=== PATIENT | female | born 1940 | race Caucasian/White ===

== ENCOUNTER 2017-07-27 15:39 | Emergency (ER) | payer MEDICARE, OTHER ==
[2015-11-13 07:31] VITALS: BMI 25.4
[~2017-07-27 15:39] MED LIST: EVISTA60 MG PO; GLUCOVANCE 5/501 TAB PO; HYDROCODONE-APA1 TAB PO; INVOKANA100 MG PO; OS-CAL 500+D TA1 TAB PO; OS-CAL500 MG PO; ZESTRIL40 MG PO
== END 2017-07-27 21:03 | disposition home or self-care (01) ==
LOC: D.ER 15:39
DX: I82.401 Acute embolism and thrombosis of unspecified deep veins of right lower extremity (principal); E11.9 Type 2 diabetes mellitus without complications; I10 Essential (primary) hypertension; M79.661 Pain in right lower leg

== ENCOUNTER → 2018-02-14 14:09 | Outpatient (CLI) | payer MEDICARE, OTHER ==
[2015-11-13 07:31] VITALS: BMI 25.4
[~2018-02-14 14:09] MED LIST changes: +ELIQUIS5 MG PO; +FLORAJEN3 CAPS460 MG PO; +MUCINEX DM ER1 EAC1 PO; +OMNICEF300 MG PO; +PREDNISONE10 MG PO; +SINGULAIR10 MG PO; +TESSALON PERLE100 MG PO
== END | disposition home or self-care (01) ==
LOC: D.CT 14:09
DX: R93.8 Abnormal findings on diagnostic imaging of other specified body structures (principal)

== ENCOUNTER 2018-02-17 09:21 | Inpatient (IN) | payer MEDICARE, OTHER ==
[~2018-02-17] VITALS: Ht 167.6 cm; Wt 66.4 kg
--- NOTE | ~2018-02-17 | EC ---
PATIENT:NEGRO JESSICA DATE OF SERVICE: 02/17/18 SEX: F MEDICAL RECORD: [id number] DATE OF : 40 LOCATION:D.M2 D.210 AGE OF PATIENT: 77 ADMISSION DATE: 02/17/18 REFERRING PHYSICIAN: INTERPRETING PHYSICIAN: MICAH VÁSQUEZ MD ECHOCARDIOGRAM REPORT ECHO CHARGES 4 ECHO COMPLETE Date: 02/17/18 CLINICAL DIAGNOSIS: SOB/PULMONARY HTN ? ECHOCARDIOGRAPHIC MEASUREMENTS (adult normal given) AC root (d.<3.7cm) 3.0 cm LV Septum d (<1.2 cm> 1.5 cm Valve Excursion 1.5 cm LV Septum (systole) 2.0 cm Left Atria (s.<4.0cm> 3.3 cm LVPW d(<1.2cm) 1.2 cm RV (d.<2.3cm) 2.4 cm LVPW (sytole) 1.9 cm LV diastole(<5.6CM) 3.9 cm MV E-F(>70mm/sec) cm LV systole 1.4 cm LVOT Diameter 1.8 cm MV exc.(>10mm) cm Est.ejection fraction (50-75%) % DOPPLER: LVIT cm/sec A 120 cm/sec E 94.0 cm/sec LA cm/sec RVSP 48.0 mmHg LVOT 149 cm/sec AOP1/2T m/s Asc. Ao 217 cm/sec RVOT 98.0 cm/sec RA cm/sec PA 112 cm/sec AV Gradient Peak 19.0 mmHg AV Mean 8.9 mmHg AV Area 1.4 cm MV Gradient Peak 8.3 mmHg MV Mean 2.6 mmHg MV Area cm COMMENTS: Admitting Representative: Cinthia TABOROE Forge Operator Helper: 1 Dr. Vásquez TAPE# PACS Pericardial Effusion N DATE OF SERVICE: 02/18/2018 FINDINGS: 1. Left ventricular chamber size is within normal limits. Left ventricular systolic function is normal. Overall ejection fraction estimated at 65%. 2. Left atrium, right atrium, and right ventricular chamber sizes are within normal limits. 3. Valvular structures have normal structure and motion. 4. Doppler interrogation reveals mild mitral regurgitation, mild tricuspid regurgitation. No other valvular insufficiency or stenosis. Pulmonary systolic ECHOCARDIOGRAM REPORT [id number] NEGRO JESSICA pressure is mildly elevated, estimated at 48 mmHg. 5. No evidence of pericardial effusion or left ventricular thrombus. TRANSINT:[id number] Voice Confirmation ID: [id number] DOCUMENT ID: [id number] MICAH VÁSQUEZ MD at 1950 CC: [id number] DICTATION DATE: 02/18/18 0952 RESIDENT IN DIAGNOSTIC RADIOLOGY: 02/18/18 1039 DIS IN 02/21/18 [place] [id number] [place] [id number]
[~2018-02-17 09:21] MED LIST changes: -ELIQUIS5 MG PO; -FLORAJEN3 CAPS460 MG PO; -MUCINEX DM ER1 EAC1 PO; -OMNICEF300 MG PO; -PREDNISONE10 MG PO; -SINGULAIR10 MG PO; -TESSALON PERLE100 MG PO
[2018-02-17 09:44] LABS: BASOPHILS 0.9 % (0-2); EOSINOPHILS 35.3 % (0-7); IMMATURE GRANULOCYTES 0.1 % (0-5); LYMPHOCYTES 11.6 % (15-50); MCH 30.2 pg (26.0-34.0); MCHC 33.3 g/dL (31.0-37.0); MCV 90.5 fL (80.0-100.0); MEAN PLATELET VOLUME 9.5 fL (7.4-10.4); MONOCYTES 5.1 % (2-11); PLATELET COUNT 220 10x3/uL (130-400); RBC 4.31 10x6/uL (4.00-5.40); RDW 12.8 % (11.5-14.5); WBC 9.6 10x3/uL (4.8-10.8)
[2018-02-17 09:58] LABS: ALBUMIN 3.3 g/dL (3.4-5.0); ALKALINE PHOSPHATASE 84 U/L (46-116); ALT (SGPT) 16 U/L (10-68); BILIRUBIN - TOTAL 1.13 mg/dL (0.2-1.3); CALC OSMOLALITY 284 mosm/kg (275-300); CALCIUM 8.9 mg/dL (8.5-10.1); CARBON DIOXIDE 27.3 mmol/L (21.0-32.0); CHLORIDE - SERUM 105 mmol/L (98-107); CREATININE - SERUM 0.8 mg/dL (0.6-1.3); POTASSIUM - SERUM 4.5 mmol/L (3.5-5.1); PROTEIN - SERUM 7.4 g/dL (6.4-8.2); SODIUM 139 mmol/L (136-145); UREA NITROGEN 24 mg/dL (7-18); eGFR NON AFRICAN AMERICAN 74 mL/min (90-120)
[2018-02-17 10:00] LABS: GLUCOSE 156 mg/dL (74-106)
[2018-02-17 10:07] LABS: PRO BNP 458 pg/mL (0-450); TROPONIN-I < 0.017 ng/mL (0.000-0.060)
[2018-02-17] MEDS ORDERED: ELIQUIS5 MG PO (12:19)
[2018-02-17 12:53] VITALS: BP 140/69
[2018-02-17 16:23] VITALS: BP 118/60
[2018-02-17 18:58] VITALS: BP 118/60; BMI 23.6
[2018-02-17 20:16] VITALS: BP 116/52
[2018-02-18 01:25] VITALS: BP 123/53
[2018-02-18 04:34] LABS: BASOPHILS 0 % (0-2); EOSINOPHILS 0.2 % (0-7); HEMATOCRIT 36.3 % (36.0-48.0); IMMATURE GRANULOCYTES 0.4 % (0-5); LYMPHOCYTES 6.8 % (15-50); MCH 30.2 pg (26.0-34.0); MCHC 33.1 g/dL (31.0-37.0); MCV 91.4 fL (80.0-100.0); MEAN PLATELET VOLUME 9.7 fL (7.4-10.4); MONOCYTES 1.7 % (2-11); NEUTROPHILS 90.9 % (40-80); PLATELET COUNT 218 10x3/uL (130-400); RBC 3.97 10x6/uL (4.00-5.40); RDW 12.7 % (11.5-14.5)
[2018-02-18 04:50] LABS: WBC 5.4 10x3/uL (4.8-10.8)
[2018-02-18 05:03] VITALS: BP 140/68
[2018-02-18 08:41] VITALS: BP 129/61
[2018-02-18 09:39] LABS: ANION GAP 17.3 mmol/L (8-16); CALCIUM 8.4 mg/dL (8.5-10.1); CARBON DIOXIDE 21.8 mmol/L (21.0-32.0); MAGNESIUM - SERUM 2.6 mg/dL (1.8-2.4); POTASSIUM - SERUM 5.1 mmol/L (3.5-5.1)
[2018-02-18 09:43] LABS: CREATININE - SERUM 1.1 mg/dL (0.6-1.3)
[2018-02-18 11:51] VITALS: Ht 167.6 cm; Wt 66.4 kg
[2018-02-18 12:39] VITALS: BP 134/61
[2018-02-18 13:54] LABS: APPEARANCE CLEAR (CLEAR); BILIRUBIN NEGATIVE (NEGATIVE); COLOR YELLOW (YELLOW); GLUCOSE 1000 mg/dL (NEGATIVE); KETONE MODERATE mg/dL (NEGATIVE); NITRITE NEGATIVE (NEGATIVE); PROTEIN NEGATIVE (NEGATIVE); SPECIFIC GRAVITY 1.015 (1.005-1.020); UROBILINOGEN NORMAL (NORMAL)
[2018-02-18 15:52] VITALS: BP 127/60
[2018-02-18 20:01] VITALS: BP 112/50
[2018-02-19 00:45] VITALS: BP 102/51
[2018-02-19 05:40] VITALS: BP 118/55
[2018-02-19 05:43] LABS: BASOPHILS 0.1 % (0-2); EOSINOPHILS 0 % (0-7); HEMATOCRIT 33.4 % (36.0-48.0); HEMOGLOBIN 11.1 g/dL (12-16); IMMATURE GRANULOCYTES 0.4 % (0-5); MCH 30.1 pg (26.0-34.0); MCHC 33.2 g/dL (31.0-37.0); MCV 90.5 fL (80.0-100.0); MEAN PLATELET VOLUME 9.7 fL (7.4-10.4); MONOCYTES 5.4 % (2-11); NEUTROPHILS 91.1 % (40-80); PLATELET COUNT 221 10x3/uL (130-400); RBC 3.69 10x6/uL (4.00-5.40); RDW 12.9 % (11.5-14.5); WBC 13.3 10x3/uL (4.8-10.8)
[2018-02-19 05:57] LABS: ANION GAP 8.4 mmol/L (8-16); CALCIUM 8.4 mg/dL (8.5-10.1); CREATININE - SERUM 0.9 mg/dL (0.6-1.3); POTASSIUM - SERUM 5.2 mmol/L (3.5-5.1)
[2018-02-19 06:00] LABS: CARBON DIOXIDE 28.8 mmol/L (21.0-32.0)
[2018-02-19 08:04] VITALS: BP 121/59
[2018-02-19 11:31] VITALS: BP 125/54
[2018-02-19 16:12] VITALS: BP 107/52
[2018-02-19 20:38] VITALS: BP 125/56
[2018-02-20] VITALS (7 sets, daily range): BP systolic 110–143; BP diastolic 51–75
[2018-02-20 05:04] LABS: BASOPHILS 0 % (0-2); EOSINOPHILS 0.1 % (0-7); HEMATOCRIT 33.7 % (36.0-48.0); HEMOGLOBIN 10.9 g/dL (12-16); IMMATURE GRANULOCYTES 0.3 % (0-5); LYMPHOCYTES 3.2 % (15-50); MCH 29.5 pg (26.0-34.0); MCHC 32.3 g/dL (31.0-37.0); MCV 91.3 fL (80.0-100.0); MEAN PLATELET VOLUME 9.7 fL (7.4-10.4); MONOCYTES 5.6 % (2-11); NEUTROPHILS 90.8 % (40-80); PLATELET COUNT 223 10x3/uL (130-400); RBC 3.69 10x6/uL (4.00-5.40); RDW 13.3 % (11.5-14.5); WBC 10.9 10x3/uL (4.8-10.8)
[2018-02-20 05:10] LABS: CALCIUM 8.4 mg/dL (8.5-10.1); CREATININE - SERUM 0.9 mg/dL (0.6-1.3)
[2018-02-21] VITALS: BP 133/67
[2018-02-21 04:00] VITALS: BP 130/76
[2018-02-21 05:45] LABS: BASOPHILS 0 % (0-2); EOSINOPHILS 6.9 % (0-7); HEMATOCRIT 34.1 % (36.0-48.0); IMMATURE GRANULOCYTES 0.2 % (0-5); LYMPHOCYTES 18.5 % (15-50); MCH 29.7 pg (26.0-34.0); MCHC 32.3 g/dL (31.0-37.0); MCV 92.2 fL (80.0-100.0); MONOCYTES 9.6 % (2-11); NEUTROPHILS 64.8 % (40-80); PLATELET COUNT 219 10x3/uL (130-400); RDW 13.3 % (11.5-14.5); WBC 8.8 10x3/uL (4.8-10.8)
[2018-02-21 05:56] LABS: CALC OSMOLALITY 285 mosm/kg (275-300); CALCIUM 8.3 mg/dL (8.5-10.1); CARBON DIOXIDE 29.5 mmol/L (21.0-32.0); CHLORIDE - SERUM 105 mmol/L (98-107); CREATININE - SERUM 0.7 mg/dL (0.6-1.3); POTASSIUM - SERUM 4.5 mmol/L (3.5-5.1); SODIUM 141 mmol/L (136-145); UREA NITROGEN 30 mg/dL (7-18); eGFR NON AFRICAN AMERICAN 86 mL/min (90-120)
[2018-02-21 05:57] LABS: GLUCOSE 80 mg/dL (74-106)
[2018-02-21 08:57] VITALS: BP 129/65
[2018-02-21] MEDS ORDERED: TESSALON PERLE100 MG PO (10:07)
[2018-02-21] MEDS ORDERED: SINGULAIR10 MG PO (10:07)
[2018-02-21] MEDS ORDERED: MUCINEX DM ER1 EAC1 PO (10:07)
[2018-02-21] MEDS ORDERED: FLORAJEN3 CAPS460 MG PO (10:08)
[2018-02-21] MEDS ORDERED: OMNICEF300 MG PO (10:08)
[2018-02-21] MEDS ORDERED: PREDNISONE10 MG PO (10:09)
[2018-02-21 10:11] LABS: ANA REFLEX - DIRECT Negative (Negative)
[2018-02-21 11:35] VITALS: BP 146/75
[2018-02-21 13:12] LABS: ANGIOTENSIN CONVERTING ENZYME < 15 U/L (14-82)
[2018-02-21 15:20] LABS: IMMUNOGLOBULIN A 180 mg/dL (64-422); IMMUNOGLOBULIN G 1133 mg/dL (700-1600)
[2018-02-21 17:11] LABS: ANCA - ANTIMYELOPEROXIDASE <9.0 U/mL (0.0-9.0); ANCA - ANTIPROTEINASE 3 <3.5 U/mL (0.0-3.5); ANCA - ATYPICAL <1:20 titer (Neg:<1:20); ANCA - CYTOPLASMIC <1:20 titer (Neg:<1:20); ANCA - PERINUCLEAR <1:20 titer (Neg:<1:20)
[2018-02-21 19:10] LABS: CYCLIC CITRULL PEPTIDE IGG/IGA 5 units (0-19)
[2018-02-23 03:13] LABS: IMMUNOGLOBULIN E 1634 IU/mL (0-100)
== END 2018-02-21 13:22 | disposition home or self-care (01) | DRG 197 ==
LOC: D.ER 09:21 → D.M2 11:10 → D.EDHOLD 11:10 → D.M2 11:23
PROVIDERS: Family Medicine; Internal Medicine Nephrology; Internal Medicine Pulmonary Disease
DX: J84.9 Interstitial pulmonary disease, unspecified (principal); J44.0 Chronic obstructive pulmonary disease with (acute) lower respiratory infection; I82.501 Chronic embolism and thrombosis of unspecified deep veins of right lower extremity; N17.9 Acute kidney failure, unspecified; J44.1 Chronic obstructive pulmonary disease with (acute) exacerbation; J20.9 Acute bronchitis, unspecified; I27.20 Pulmonary hypertension, unspecified; E11.42 Type 2 diabetes mellitus with diabetic polyneuropathy; I10 Essential (primary) hypertension; M19.90 Unspecified osteoarthritis, unspecified site; Z87.891 Personal history of nicotine dependence

== ENCOUNTER → 2018-07-04 08:32 | Outpatient (CLI) | payer MEDICARE, OTHER ==
[2018-02-18 11:51] VITALS: BMI 23.6
[~2018-07-04 08:32] MED LIST changes: +ELIQUIS5 MG PO; +FLORAJEN3 CAPS460 MG PO; +MUCINEX DM ER1 EAC1 PO; +OMNICEF300 MG PO; +PREDNISONE10 MG PO; +SINGULAIR10 MG PO; +TESSALON PERLE100 MG PO
== END | disposition home or self-care (01) ==
LOC: D.RT 08:32
DX: J84.9 Interstitial pulmonary disease, unspecified (principal); J44.9 Chronic obstructive pulmonary disease, unspecified

== ENCOUNTER 2019-02-17 09:38 | Inpatient (IN) | payer MEDICARE, OTHER ==
[~2019-02-17] VITALS: Ht 167.6 cm; Wt 68.9 kg
[2019-02-17 10:09] LABS: EOSINOPHILS 27.5 % (0-7); HEMATOCRIT 35.6 % (36.0-48.0); HEMOGLOBIN 12.3 g/dL (12-16); IMMATURE GRANULOCYTES 0.2 % (0-5); LYMPHOCYTES 10.9 % (15-50); MCH 29.4 pg (26.0-34.0); MCHC 34.6 g/dL (31.0-37.0); MCV 85.2 fL (80.0-100.0); MEAN PLATELET VOLUME 9.6 fL (7.4-10.4); MONOCYTES 6.6 % (2-11); NEUTROPHILS 53.8 % (40-80); PLATELET COUNT 224 10x3/uL (130-400); RBC 4.18 10x6/uL (4.00-5.40); RDW 13.1 % (11.5-14.5); WBC 9.1 10x3/uL (4.8-10.8)
[2019-02-17 10:19] LABS: APTT 25.4 SECONDS (22.8-39.4); INR 0.97 (0.85-1.17); PROTIME 12.4 SECONDS (11.6-15.0)
[2019-02-17 10:23] LABS: ALBUMIN 3.2 g/dL (3.4-5.0); ALKALINE PHOSPHATASE 104 U/L (46-116); ALT (SGPT) 16 U/L (10-68); BILIRUBIN - TOTAL 1.23 mg/dL (0.2-1.3); CALC OSMOLALITY 282 mosm/kg (275-300); CHLORIDE - SERUM 106 mmol/L (98-107); CREATININE - SERUM 0.6 mg/dL (0.6-1.3); POTASSIUM - SERUM 4.4 mmol/L (3.5-5.1); SODIUM 140 mmol/L (136-145); UREA NITROGEN 14 mg/dL (7-18); eGFR NON AFRICAN AMERICAN > 90 mL/min (90-120)
[2019-02-17 10:24] LABS: GLUCOSE 144 mg/dL (74-106)
[2019-02-17 10:33] LABS: MAGNESIUM - SERUM 1.6 mg/dL (1.8-2.4); PRO BNP 463 pg/mL (0-450); THYROID STIMULATING HORMONE 1.31 uIU/mL (0.36-3.74)
[2019-02-17 10:37] LABS: TROPONIN-I < 0.017 ng/mL (0.000-0.060)
[2019-02-17 11:01] VITALS: BP 149/84
[2019-02-17] MEDS ORDERED: COZAAR50 MG PO (12:20)
[2019-02-17] MEDS ORDERED: JANUVIA50 MG PO (12:23)
[2019-02-17 12:24] VITALS: BP 148/70; BMI 24.5
--- NOTE | 2019-02-17 13:17 | NUR ---
REC'D PT LYING IN BED RESP EVEN AND UNLABORED LUNG DIMINISHED THROUGHOUT WITH INSPIRATORY WHEEZING, CALLED RT FOR TREATMENT AT THIS TIME. PT AOX4. PT DENIES PAIN AT THIS TIME. 18 GUAGE IN LEFT HAND PATENT AND INTACT AT THIS TIME. BED AT LOWEST SETTING WITH BRAKES LOCKED SRX2 CALL LIGHT WITHIN REACH WILL CONTINUE TO MONITOR
[2019-02-17 14:48] VITALS: Ht 167.6 cm; Wt 68.9 kg
[2019-02-17 17:24] VITALS: BP 129/91
--- NOTE | 2019-02-17 17:30 | MORECARE ---
CASE MANAGEMENT DISCHARGE SUMMARY PATIENT: CLEO BYRNE UNIT: [id number] ADM DATE: 02/17/19 AGE: 78 : 40 SEX: F ROOM/BED: D.2225 AUTHOR: LEONARDO,DOC PHYSICIAN: REFERRING PHYSICIAN: ROSALIO CHAUDHARI MD DATE OF SERVICE: 02/17/19 Discharge Plan Patient Name: CLEO BYRNE Facility: [facility]:[place] : 1940 Planned Disposition: Home Anticipated Discharge Date: 02/20/19 Discharge Date: Expected LOS: 3 Initial Reviewer: [email or web address] Initial Review Date: 02/17/2019 Generated: 02/17/19 6:30 pm DCP- Discharge Planning Updated by [email or web address]: Dalila Rondon on 02/17/19 4:[address] Patient Name: CLEO BYRNE Admission Status: ER Accout number: [id number] Admission Date: 02-17-2019 : 1940 Admission Diagnosis: Attending: ROSALIO CHAUDHARI Current LOS: 1 Anticipated DC Date: 02-20-2019 Planned Disposition: Home Primary Insurance: MEDICARE A & B Discharge Planning Comments: DC PLAN: Return home with independently. ANTICIPATED DC NEEDS: Denied known dc needs in the ER. CM met with patient and her to complete initial dc planning assessment. CM educated patient on the CM role and verbal consent given by patient to complete assessment. CM verified patient's address, phone number, and emergency contact phone numbers. Patient lives at home with her and reports she is independent. At discharge patient plans to return home and feels this is a safe discharge. CM discussed availability of home health, rehab services, and medical equipment. Patient denied known discharge needs at this time. Patient reports her will transport her home at time of discharge. CM will continue to follow and will assist as needed with dc plans/needs. Stock Associate: Dalila Rondon RN, [facility] DCPIA - Discharge Planning Initial Assessment Updated by [email or web address]: Dalila Rondon on 02/17/19 5:25 pm * Is the patient Alert and Oriented? Yes * How many steps to enter\exit or inside your home? two * PCP Dr. Medrano's Nurse practitioner Star [facility] PHARMAC[facility] CLINICAL COORDINATOR * Pharm[facility] [address] * Preadmission Environment Home with Family * ADLs Independent * Equipment Nebulizer * List name and contact numbers for known caregivers / representatives who currently or will assist patient after discharge: Jhonny Byrne - spouse - [phone] * Verbal permission to speak to the caregivers and representatives has been obtained from the patient. Yes * Community resources currently utilized None * Additional services required to return to the preadmission environment? No * Can the patient safely return to the preadmission environment? Yes * Has this patient been hospitalized within the prior 30 days at any hospital? No Patient Name: CLEO BYRNE Page [phone] at 1730 All edits/amendments must be made on the electronic document DICTATION DATE: 02/17/191729 EDITOR: SINDHU 02/17/191729 RPT#: [id number] DC DATE: STATUS: ADM IN [facility] [address] [place] [address] END OF REPORT
--- NOTE | 2019-02-17 19:00 | NUR ---
REPORT RECEIVED AND CARE OF PT ASSUMED. PT LYING IN LOW GARCIA'S POSITION VISITING WITH FAMILY MEMBERS. IV TO LEFT FA PATENT WITH NS INFUSING AT 75...ABX INFUSING AT THIS TIME. O2 IN USE GLYNN NC AT 2L. WILL MONITOR FOR NEEDS.
[2019-02-17 20:00] VITALS: BP 142/62
--- NOTE | 2019-02-17 20:53 | NUR ---
HS MEDICATIONS GIVEN. FSBS 405 THIS CHECK REQUIRING COVERAGE WITH 20 UNITS OF INSULIN PER SLIDING SCALE.
[2019-02-18 04:00] VITALS: BP 133/65
[2019-02-18 05:32] LABS: BASOPHILS 0.1 % (0-2); EOSINOPHILS 0 % (0-7); HEMATOCRIT 30.5 % (36.0-48.0); HEMOGLOBIN 10.2 g/dL (12-16); IMMATURE GRANULOCYTES 0.3 % (0-5); LYMPHOCYTES 5.8 % (15-50); MCH 28.8 pg (26.0-34.0); MCHC 33.4 g/dL (31.0-37.0); MCV 86.2 fL (80.0-100.0); MEAN PLATELET VOLUME 9.7 fL (7.4-10.4); NEUTROPHILS 85.8 % (40-80); PLATELET COUNT 201 10x3/uL (130-400); RBC 3.54 10x6/uL (4.00-5.40); RDW 13.1 % (11.5-14.5); WBC 7.8 10x3/uL (4.8-10.8)
[2019-02-18 05:43] LABS: CALC OSMOLALITY 287 mosm/kg (275-300); CALCIUM 8.4 mg/dL (8.5-10.1); CARBON DIOXIDE 27.3 mmol/L (21.0-32.0); CHLORIDE - SERUM 108 mmol/L (98-107); CREATININE - SERUM 0.6 mg/dL (0.6-1.3); GLUCOSE 113 mg/dL (74-106); POTASSIUM - SERUM 4.7 mmol/L (3.5-5.1); SODIUM 142 mmol/L (136-145); eGFR NON AFRICAN AMERICAN > 90 mL/min (90-120)
[2019-02-18 05:51] LABS: UREA NITROGEN 23 mg/dL (7-18)
--- NOTE | 2019-02-18 06:01 | NUR ---
COLLECTED SAMPLE FOR RESPIRATORY CULTURE AND DELIVERED TO LAB.
--- NOTE | 2019-02-18 08:15 | NUR ---
REC'D PT LYING IN BED AOX4 RESP EVEN AND UNLABORED LUNGS SOUNDS DIMINISHED THROUGHOUT. IV TO LEFT FOREARM PATENT AND INTACT AT THIS TIME. PT DENIES NEEDS AT THIS TIME. SRX2 BED AT LOWEST SETTING WITH BRAKES LOCKED CALL LIGHT WITHIN REACH WILL CONTINUE TO MONITOR
[2019-02-18 08:35] VITALS: BP 128/60
[2019-02-18 12:31] VITALS: BP 126/61
[2019-02-18 16:58] VITALS: BP 140/63
[2019-02-18 17:42] VITALS: BP 140/63
--- NOTE | 2019-02-18 19:00 | NUR ---
REPORT RECEIVED AND CARE OF PT ASSUMED. PT LYING IN SEMI GARCIA'S POSITION TALKING ON THE PHONE. IV TO LEFT FA PATENT WITH NS INFUSING AT 75 ML/HR. O2 IN USE VIA NC AT 2L. WILL MONITOR FOR NEEDS.
[2019-02-18 20:00] VITALS: BP 129/65
--- NOTE | 2019-02-18 20:14 | NUR ---
HS MEDICATIONS GIVEN TO INCLUDE PHENERGAN W/ CODEINE COUGH SYRUP PER PRN ORDER. WILL CONTINUE TO MONITOR FOR NEEDS.
[2019-02-19] VITALS: BP 118/64
[2019-02-19 04:00] VITALS: BP 142/72
[2019-02-19 04:51] LABS: BASOPHILS 0 % (0-2); EOSINOPHILS 0 % (0-7); HEMATOCRIT 29.1 % (36.0-48.0); HEMOGLOBIN 9.4 g/dL (12-16); IMMATURE GRANULOCYTES 0.4 % (0-5); LYMPHOCYTES 5.1 % (15-50); MCH 28.1 pg (26.0-34.0); MCHC 32.3 g/dL (31.0-37.0); MCV 87.1 fL (80.0-100.0); MEAN PLATELET VOLUME 9.5 fL (7.4-10.4); MONOCYTES 5.4 % (2-11); NEUTROPHILS 89.1 % (40-80); PLATELET COUNT 191 10x3/uL (130-400); RBC 3.34 10x6/uL (4.00-5.40); RDW 13.5 % (11.5-14.5); WBC 8.5 10x3/uL (4.8-10.8)
[2019-02-19 05:12] LABS: CALC OSMOLALITY 283 mosm/kg (275-300); CALCIUM 8.1 mg/dL (8.5-10.1); CHLORIDE - SERUM 109 mmol/L (98-107); CREATININE - SERUM 0.7 mg/dL (0.6-1.3); GLUCOSE 90 mg/dL (74-106); MAGNESIUM - SERUM 1.7 mg/dL (1.8-2.4); POTASSIUM - SERUM 4.8 mmol/L (3.5-5.1); SODIUM 140 mmol/L (136-145); UREA NITROGEN 26 mg/dL (7-18); eGFR NON AFRICAN AMERICAN 86 mL/min (90-120)
--- NOTE | 2019-02-19 08:00 | NUR ---
ASSESSMENT PER FLOW SHEET. PT IS WITHOUT DISTRESS.FALL PREVENTION IN PLACE.MONITOR FOR NEEDS.
[2019-02-19 08:05] VITALS: BP 149/79
[2019-02-19 12:42] VITALS: BP 163/53
--- NOTE | 2019-02-19 15:07 | NUR ---
OT NOTE: PT COMPLETED BED MOB TASKS WITH SPV.PT COMPLETED EOB SITTING WITH SPV. PT COMPLETED BUE AROM AXS. LASHANDA BERMAN COTA
[2019-02-19 17:16] VITALS: BP 162/76
[2019-02-19 20:00] VITALS: BP 159/79
--- NOTE | 2019-02-19 20:00 | NUR ---
ASSESSMENT PER FLOWSHEET. PATIENT IN BED TAKING UPDRAFT TX. IV PATENT LEFT ARM OF NS AT 75CC'S/HR.O2 ON 2L/M IA NC. SR UP X2 CALL LIGHT WITHIN REACH.
--- NOTE | 2019-02-19 22:00 | NUR ---
MEDS PER AUG. CVUAF=230.12 UNITS OF REGULAR INSULIN GIVEN SUBC TO RT ARM PER S/S.
[2019-02-20 00:59] VITALS: BP 136/73
--- NOTE | 2019-02-20 02:40 | NUR ---
AWAKE UP TO BR. RESTING QUIETLY.
[2019-02-20 05:08] VITALS: BP 170/85
[2019-02-20 06:05] LABS: BASOPHILS 0.1 % (0-2); EOSINOPHILS 0.1 % (0-7); IMMATURE GRANULOCYTES 0.4 % (0-5); LYMPHOCYTES 6.3 % (15-50); MCH 28.2 pg (26.0-34.0); MCHC 32.3 g/dL (31.0-37.0); MCV 87.3 fL (80.0-100.0); MEAN PLATELET VOLUME 10.1 fL (7.4-10.4); MONOCYTES 4.8 % (2-11); NEUTROPHILS 88.3 % (40-80); PLATELET COUNT 211 10x3/uL (130-400); RBC 3.55 10x6/uL (4.00-5.40); RDW 13.4 % (11.5-14.5)
[2019-02-20 06:28] LABS: CALC OSMOLALITY 287 mosm/kg (275-300); CALCIUM 8.2 mg/dL (8.5-10.1); CARBON DIOXIDE 27.8 mmol/L (21.0-32.0); CHLORIDE - SERUM 109 mmol/L (98-107); CREATININE - SERUM 0.7 mg/dL (0.6-1.3); GLUCOSE 72 mg/dL (74-106); MAGNESIUM - SERUM 2.1 mg/dL (1.8-2.4); POTASSIUM - SERUM 4.4 mmol/L (3.5-5.1); SODIUM 143 mmol/L (136-145); UREA NITROGEN 23 mg/dL (7-18); eGFR NON AFRICAN AMERICAN 86 mL/min (90-120)
--- NOTE | 2019-02-20 08:00 | NUR ---
ASSESSMENT PER FLOW SHEET. PT IS WITHOUT DISTRESS.MONITOR FOR NEEDS.CALL LIGHT IN REACH
[2019-02-20 08:56] VITALS: BP 159/84
[2019-02-20 12:55] VITALS: BP 171/74
--- NOTE | 2019-02-20 12:56 | NUR ---
OT NOTE: PT PERFORMED VERY WELL TODAY. ABLE TO SPARKLE AND DOFF SOCKS AND GOWN WITHOUT ASSIST; BED MOB INDEP; TOILETING WITH SPV; AMB TO SHOWER AND PERFORM FULL SHOWER WITHOUT ASSIST AND WITHOUT USE OF TUB BENCH.. DID HOWEVER USE HAND RAILS. GOOD SAFETY WHEN STEPPING OUT OF SHOWER; AMB IN ROOM TO SINK TO PERFORM GROOMING TASKS WITH SBA. BACK TO BED WITH SBA. DANISH JAY, OTR/L
[2019-02-20 16:45] VITALS: BP 156/77
--- NOTE | 2019-02-20 16:48 | NUR ---
OT NOTE: PT COMPLETED BATHING AND GROOMING TASKS WITH SBA. PT COMPLETED ADL MOB WITH SBA. THANK YOU, RYANN POPE
--- NOTE | 2019-02-20 17:46 | NUR ---
PT REMAINS WITHOUT DISTRESS.CONT PLAN OF CARE
[2019-02-20 20:00] VITALS: BP 171/76
--- NOTE | 2019-02-20 20:00 | NUR ---
ASSESSMENT PER FLOWSHEET. IV PATENT LEFT ARM OF NS AT 30CC'S/HR. O2 ON 2 L/M PER NC NO DISTRESS. SR UP X2 CALL LIGHT WITHIN REACH RT HERE FOR UPDRAFT TX.
--- NOTE | 2019-02-20 22:10 | NUR ---
MEDS GIVEN PER AUG. CLJZ=717. REGULAR INSULIN 10 UNITS GIVEN SUBC PER S/S RT ARM.
--- NOTE | 2019-02-21 | NUR ---
UP TO BR VOIDS WELL BACK TO BED. RESTING QUIETLY.
--- NOTE | 2019-02-21 03:00 | NUR ---
EYES CLOSED RESPIRATIONS WITH EASE AND UNLABORED.
[2019-02-21 04:35] VITALS: BP 148/64
--- NOTE | 2019-02-21 05:13 | NUR ---
RESTING QUIETLY RESPIRATIONS WITH EASE AND UNLABORED.
[2019-02-21 06:01] LABS: BASOPHILS 0.2 % (0-2); EOSINOPHILS 3.2 % (0-7); HEMATOCRIT 30.1 % (36.0-48.0); HEMOGLOBIN 9.9 g/dL (12-16); IMMATURE GRANULOCYTES 0.3 % (0-5); LYMPHOCYTES 17.5 % (15-50); MCH 28.8 pg (26.0-34.0); MCHC 32.9 g/dL (31.0-37.0); MCV 87.5 fL (80.0-100.0); MONOCYTES 13.9 % (2-11); NEUTROPHILS 64.9 % (40-80); PLATELET COUNT 211 10x3/uL (130-400); RBC 3.44 10x6/uL (4.00-5.40); RDW 13.5 % (11.5-14.5)
[2019-02-21 06:15] LABS: CALCIUM 8.1 mg/dL (8.5-10.1); CARBON DIOXIDE 29.4 mmol/L (21.0-32.0); CHLORIDE - SERUM 110 mmol/L (98-107); CREATININE - SERUM 0.6 mg/dL (0.6-1.3); MAGNESIUM - SERUM 2.1 mg/dL (1.8-2.4); SODIUM 144 mmol/L (136-145); UREA NITROGEN 22 mg/dL (7-18); WBC 10.4 10x3/uL (4.8-10.8); eGFR NON AFRICAN AMERICAN > 90 mL/min (90-120)
[2019-02-21 06:36] LABS: CALC OSMOLALITY 286 mosm/kg (275-300); POTASSIUM - SERUM 3.4 mmol/L (3.5-5.1)
[2019-02-21 06:37] LABS: GLUCOSE 50 mg/dL (74-106)
--- NOTE | 2019-02-21 07:32 | NUR ---
ALERT AND ORIENTED. LUNGS DIMINISHED BILATERALLY IN ALL SANDOVAL. HEART SOUNDS S1 AND S2 HEARD IN ALL SANDOVAL. BOWEL SOUNDS ACTIVE X 4. SKIN INTACT WITHOUT REDNESS. IV TO LEFT ARM PATENT WITHOUT REDNESS. DENIES PAIN. DENIES NEEDS. BED LOW. CALL MICHAELS AND PERSONAL ITEMS IN REACH. WILL CONTINUE TO MONITOR.
[2019-02-21 07:59] VITALS: BP 146/74
[2019-02-21] MEDS ORDERED: BROVANA15 MCG/2 M INH (10:41)
[2019-02-21] MEDS ORDERED: OMNICEF300 MG PO (10:41)
[2019-02-21] MEDS ORDERED: ZITHROMAX250 MG PO (10:41)
[2019-02-21] MEDS ORDERED: MUCINEX DM ER1 EAC1 PO (10:42)
[2019-02-21] MEDS ORDERED: FLUTICASONE PRO16 GM NASAL (10:43)
[2019-02-21] MEDS ORDERED: FLORAJEN3 CAPS460 MG PO (10:43)
[2019-02-21] MEDS ORDERED: SINGULAIR10 MG PO (10:43)
[2019-02-21] MEDS ORDERED: Tessalon Perle PO (10:44)
[2019-02-21] MEDS ORDERED: PREDNISONE10 MG PO (10:44)
[2019-02-21] MEDS ORDERED: IPRAT-ALBUT 0.5-3 ML INH (10:45)
--- NOTE | 2019-02-21 11:00 | NUR ---
SPOKE WITH CRISS SHULTZ ABOUT PATIENT GETTING DIFLUCAN FOR YEAST INFECTION. STATES WILL PUT IN ORDER BEFORE DISCHARGE.
[2019-02-21] MEDS ORDERED: DIFLUCAN150 MG PO (11:03)
[2019-02-21] MEDS ORDERED: ADVAIR 250/501 DISK INH (11:30)
--- NOTE | 2019-02-21 11:34 | MORECARE ---
CASE MANAGEMENT DISCHARGE SUMMARY PATIENT: CLEO BYRNE UNIT: [id number] ADM DATE: 02/17/19 AGE: 78 : 40 SEX: F ROOM/BED: D.2225 AUTHOR: LEONARDODOC PHYSICIAN: REFERRING PHYSICIAN: ROSALIO CHAUDHARI MD DATE OF SERVICE: 02/21/19 Discharge Plan Patient Name: CLEO BYRNE Facility: [facility]:[place] : 1940 Planned Disposition: Home Anticipated Discharge Date: 02/20/19 Discharge Date: Expected LOS: 3 Initial Reviewer: [email or web address] Initial Review Date: 02/17/2019 Generated: 02/21/19 12:33 pm Comments DCP- Discharge Planning Updated by [email or web address]: Danae Caballero on 02/21/19 10:[address] Patient Name: CLEO BYRNE Encounter No: [id number] : 1940 Primary Insurance: MEDICARE A & B Anticipated DC Date: 02-20-2019 Planned Disposition: Home External Planned Provider: : DCP follow-up note: Patient and family in agreement with discharge plan. No changes to plan. I spoke with RT, she states patient's oxygen saturation is 98% on room air and does not qualify for home oxygen. She has a nebulizer and neb meds at her home. States she gets them from [employer]. States she did not qualify through [employer] to have medicare pay for her nebulizer and neb meds. I offered to see if she would qualify now and she states "no, I will just get it from [employer]." States her will pick her up from discharge. Home today, denies needs. Danae Caballero DCP- Discharge Planning Updated by [email or web address]: Dalila Rondon on 02/17/19 4:[address] Patient Name: CLEO BYRNE Admission Status: ER Accout number: [id number] Admission Date: 02-17-2019 : 1940 Admission Diagnosis: Attending: ROSALIO CHAUDHARI Current LOS: 1 Anticipated DC Date: 02-20-2019 Planned Disposition: Home Primary Insurance: MEDICARE A & B Discharge Planning Comments: DC PLAN: Return home with independently. ANTICIPATED DC NEEDS: Denied known dc needs in the ER. CM met with patient and her to complete initial dc planning assessment. CM educated patient on the CM role and verbal consent given by patient to complete assessment. CM verified patient's address, phone number, and emergency contact phone numbers. Patient lives at home with her and reports she is independent. At discharge patient plans to return home and feels this is a safe discharge. CM discussed availability of home health, rehab services, and medical equipment. Patient denied known discharge needs at this time. Patient reports her will transport her home at time of discharge. CM will continue to follow and will assist as needed with dc plans/needs. Science Education Professor: Dalila Rondon RN, [facility] DCPIA - Discharge Planning Initial Assessment Updated by [email or web address]: Dalila Rondon on 02/17/19 5:25 pm * Is the patient Alert and Oriented? Yes * How many steps to enter\\exit or inside your home? two * PCP Dr. Medrano's Nurse practitioner Star Blanca PIANO REFINISHER * Pharmacy [facility] [address] * Preadmission Environment Home with Family * ADLs Independent * Equipment Nebulizer * List name and contact numbers for known caregivers / representatives who currently or will assist patient after discharge: Jhonny Byrne - spouse - [phone] * Verbal permission to speak to the caregivers and representatives has been obtained from the patient. Yes * Community resources currently utilized None * Additional services required to return to the preadmission environment? No * Can the patient safely return to the preadmission environment? Yes * Has this patient been hospitalized within the prior 30 days at any hospital? No Coverage Notice Reviewer: [email or web address] Pat Caballero Notice Issued Date-Time: 02/21/2019 11:26 Notice Type: IM Discharge Notice Notice Delivered To: Patient Relationship to Patient: Self Unix Manager Name: Delivery Method: HAND - Hand Delivered [place] Days: Prior Verbal Notification: Recipient Understood Notice: Yes Recipient Signature: Yes Med Rec Note Co-signed by Attending: Coverage Notice Comment: IMM explained, signed, given, copy placed in MR Last DP export: 02/17/19 4:30 p Patient Name: CLEO BYRNE Page [phone] at 1134 All edits/amendments must be made on the electronic document DICTATION DATE: 02/21/19 1133 STORAGE BATTERY TESTER: SINDHU 02/21/19 1133 RPT#: [id number] DC DATE: STATUS: ADM IN [facility] [address] [place] [address] END OF REPORT
[2019-02-21 11:55] VITALS: BP 162/77
--- NOTE | 2019-02-21 11:57 | NUR ---
SPOKE WITH DR ALARCON WHO STATES NOT DISCHARGING PATIENT TODAY. WANTS TO GET UA/CS. SUPPLIES IN ROOM. PATIENT VERBALIZED UNDERSTANDING.
--- NOTE | 2019-02-21 12:07 | NUR ---
EDUCATION PROVIDED ON NEED FOR UA/CS. EDUCATION PROVIDED TO CLEAN AREA EXTREMELY WELL AND GET URINE IN CUP MIDSTREAM. PATIENT VERBALIZED UNDERSTANDING AND PROVIDED TEACH BACK.
--- NOTE | 2019-02-21 14:18 | NUR ---
RESTING IN BED. DENIES PAIN. DENIES NEEDS. WILL CONTINUE TO MONITOR.
[2019-02-21 15:21] LABS: APPEARANCE CLEAR (CLEAR); BACTERIA FEW /hpf (NONE SEEN); BILIRUBIN NEGATIVE (NEGATIVE); COLOR STRAW (YELLOW); EPITHELIAL CELLS 0-5 /hpf (0-5); GLUCOSE 1000 mg/dL (NEGATIVE); KETONE SMALL mg/dL (NEGATIVE); MUCUS <1+ /lpf (NONE SEEN); NITRITE NEGATIVE (NEGATIVE); PROTEIN NEGATIVE (NEGATIVE); RED CELLS - URINE OCC /hpf (0-5); SPECIFIC GRAVITY 1.015 (1.005-1.020); UROBILINOGEN NORMAL (NORMAL); WHITE CELLS - URINE OCC /hpf (0-5)
--- NOTE | 2019-02-21 15:56 | NUR ---
OT NOTE: PT SLEEPING IN PM. REPORTED THAT SHE WAS GOING TO HAVE TO STAY ANOTHER NIGHT DUE TO POSSIBLE UTI. PT STATED THAT SHE HAD BEEN UP SEVERAL TIMES TO THE BATHROOM BUT DID NOT FEEL LIKE AMB INTO HALLWAY AT THIS TIME. DANISH JAY, OTR/L
[2019-02-21 16:01] VITALS: BP 157/71
--- NOTE | 2019-02-21 17:15 | NUR ---
SITTING IN CHAIR AT BEDSIDE. DENIES PAIN. DENIES NEEDS. WILL CONTINUE TO MONITOR.
--- NOTE | 2019-02-21 20:00 | NUR ---
ASSESSMENT PER FLOWSHEET. IV PATENT LEFT ARM SALINE LOCKED. O2 OFF PT ON ROOM AIR. DENIES NEEDS. SR UP X2 CALL LIGHT WITHIN REACH.
[2019-02-21 20:47] VITALS: BP 144/69
--- NOTE | 2019-02-21 21:30 | NUR ---
MEDS GIVEN PER MAR. [id number]. REGULAR INSULIN 8 UNITS GIVEN PER S/S SUBC.
--- NOTE | 2019-02-22 | NUR ---
EYES CLOSED RESPIRATIONS WITH EASE AND UNLABORED.
[2019-02-22 00:36] VITALS: BP 161/79
[2019-02-22 05:08] VITALS: BP 171/78
--- NOTE | 2019-02-22 06:27 | NUR ---
MEDS GIVEN PER MAR. MNCV=[id number] NO COVERAGE NEEDED.
[2019-02-22 06:44] LABS: BASOPHILS 0 % (0-2); EOSINOPHILS 0 % (0-7); HEMATOCRIT 30.5 % (36.0-48.0); HEMOGLOBIN 10.1 g/dL (12-16); IMMATURE GRANULOCYTES 0.5 % (0-5); LYMPHOCYTES 8.6 % (15-50); MCH 28.3 pg (26.0-34.0); MCHC 33.1 g/dL (31.0-37.0); MONOCYTES 6.6 % (2-11); NEUTROPHILS 84.3 % (40-80); PLATELET COUNT 211 10x3/uL (130-400); RBC 3.57 10x6/uL (4.00-5.40); RDW 13.2 % (11.5-14.5)
[2019-02-22 06:53] LABS: WBC 6.5 10x3/uL (4.8-10.8)
[2019-02-22 06:55] LABS: MCV 85.4 fL (80.0-100.0)
[2019-02-22 06:57] LABS: CALCIUM 8.1 mg/dL (8.5-10.1); CARBON DIOXIDE 28.9 mmol/L (21.0-32.0); CHLORIDE - SERUM 107 mmol/L (98-107); CREATININE - SERUM 0.6 mg/dL (0.6-1.3); SODIUM 141 mmol/L (136-145); UREA NITROGEN 22 mg/dL (7-18); eGFR NON AFRICAN AMERICAN > 90 mL/min (90-120)
[2019-02-22 07:00] LABS: CALC OSMOLALITY 284 mosm/kg (275-300); GLUCOSE 112 mg/dL (74-106); POTASSIUM - SERUM 4.3 mmol/L (3.5-5.1)
--- NOTE | 2019-02-22 07:41 | NUR ---
PATIENT BEDSIDE REPORT RECIEVED. PATIENT UP TO BR AT THIS TIME. NO COMPLAINTS OR PROBLEMS. CALL LIGHT WITHIN REACH.
[2019-02-22 08:50] VITALS: BP 182/77
--- NOTE | 2019-02-22 12:00 | NUR ---
PATIENT RECIEVED DC INSTRUCTIONS. VERBALIZED UNDERSTANDING. PRESCRIPTIONS ALREADY PICKED UP BY . NO QUESTIONS AT THIS TIME. IV REMOVED WITH CATH TIP INTACT. CALL LIGHT WITHIN REACH. WAITING TO EAT LUNCH AND THEN DC.
[2019-02-22 12:14] VITALS: BP 113/61
--- NOTE | 2019-02-22 12:40 | NUR ---
PATIENT ESCORTED OUT OF HOSPITAL VIA WC WITH PERSONAL BELONGING TO PRIVATE VEHICLE.
--- NOTE | 2019-02-22 14:10 | MORECARE ---
CASE MANAGEMENT DISCHARGE SUMMARY PATIENT: CLEO BYRNE UNIT: [id number] ADM DATE: 02/17/19 AGE: 78 : 40 SEX: F ROOM/BED: D.2225 AUTHOR: LEONARDO,DOC PHYSICIAN: REFERRING PHYSICIAN: ROSALIO CHAUDHARI MD DATE OF SERVICE: 02/22/19 Discharge Plan Patient Name: CLEO BYRNE Facility: [facility]:[place] : 1940 Planned Disposition: Home Anticipated Discharge Date: 02/20/19 Discharge Date: 02/22/2019 Expected LOS: 3 Initial Reviewer: [email or web address] Initial Review Date: 02/17/2019 Generated: 02/22/19 3:09 pm Comments DCP- Discharge Planning Updated by [email or web address]: Danaecheryl Caballero on 02/22/19 1:[address] Discharging home today. She declines needs. DCP- Discharge Planning Updated by [id number]: aDnae Caballero on 02/21/19 10:[address] Patient Name: CLEO BYRNE Encounter No: [id number] : 1940 Primary Insurance: MEDICARE A & B Anticipated DC Date: 02-20-2019 Planned Disposition: Home External Planned Provider: : DCP follow-up note: Patient and family in agreement with discharge plan. No changes to plan. I spoke with RT, she states patient's oxygen saturation is 98% on room air and does not qualify for home oxygen. She has a nebulizer and neb meds at her home. States she gets them from [employer]. States she did not qualify through [employer] to have medicare pay for her nebulizer and neb meds. I offered to see if she would qualify now and she states "no, I will just get it from [employer]." States her will pick her up from discharge. Home today, denies needs. Danae Caballero DCP- Discharge Planning Updated by [email or web address]: Dalila Rondon on 02/17/19 4:[address] Patient Name: CLEO BYRNE Admission Status: ER Accout number: [id number] Admission Date: 02-17-2019 : 1940 Admission Diagnosis: Attending: ROSALIO CHAUDHARI Current LOS: 1 Anticipated DC Date: 02-20-2019 Planned Disposition: Home Primary Insurance: MEDICARE A & B Discharge Planning Comments: DC PLAN: Return home with independently. ANTICIPATED DC NEEDS: Denied known dc needs in the ER. CM met with patient and her to complete initial dc planning assessment. CM educated patient on the CM role and verbal consent given by patient to complete assessment. CM verified patient's address, phone number, and emergency contact phone numbers. Patient lives at home with her and reports she is independent. At discharge patient plans to return home and feels this is a safe discharge. CM discussed availability of home health, rehab services, and medical equipment. Patient denied known discharge needs at this time. Patient reports her will transport her home at time of discharge. CM will continue to follow and will assist as needed with dc plans/needs. Gang Head Saw Operator: Dalila Rondon RN, [facility] DCPIA - Discharge Planning Initial Assessment Updated by [email or web address]: Dalila Rondon on 02/17/19 5:25 pm * Is the patient Alert and Oriented? Yes * How many steps to enter\\exit or inside your home? two * PCP Dr. Medrano's Nurse practitioner Star Blanca COLD STORAGE WORKER * Pharmacy [facility] [address] * Preadmission Environment Home with Family * ADLs Independent * Equipment Nebulizer * List name and contact numbers for known caregivers / representatives who currently or will assist patient after discharge: Jhonny Byrne - spouse - [phone] * Verbal permission to speak to the caregivers and representatives has been obtained from the patient. Yes * Community resources currently utilized None * Additional services required to return to the preadmission environment? No * Can the patient safely return to the preadmission environment? Yes * Has this patient been hospitalized within the prior 30 days at any hospital? No Coverage Notice Reviewer: [id number] Pta Caballero Notice Issued Date-Time: 02/21/2019 11:26 Notice Type: IM Discharge Notice Notice Delivered To: Patient Relationship to Patient: Self Crew Mess Attendant Name: Delivery Method: HAND - Hand Delivered Shawanda Days: Prior Verbal Notification: Recipient Understood Notice: Yes Recipient Signature: Yes Med Rec Note Co-signed by Attending: Coverage Notice Comment: IMM explained, signed, given, copy placed in MR Last DP export: 02/21/19 10:33 am Patient Name: CLEO BYRNE Page [phone] at 1410 All edits/amendments must be made on the electronic document DICTATION DATE: 02/22/191408 DIRECTOR TRUST: SINDHU 02/22/191408 RPT#: [id number] DC DATE:02/22/19 STATUS: DIS IN [facility] [address] [place] [address] END OF REPORT
--- NOTE | 2019-02-26 12:39 | MORECARE ---
CASE MANAGEMENT DISCHARGE SUMMARY PATIENT: CLEO BYRNE UNIT: [id number] ADM DATE: 02/17/19 AGE: 78 : 40 SEX: F ROOM/BED: D.2225 AUTHOR: LEOANRDODOC PHYSICIAN: REFERRING PHYSICIAN: ROSALIO CHAUDHARI MD DATE OF SERVICE: 02/26/19 Discharge Plan Patient Name: CLEO BYRNE Facility: [facility]:[place] : 1940 Planned Disposition: Home Anticipated Discharge Date: 02/20/19 Discharge Date: 02/22/2019 Expected LOS: 3 Initial Reviewer: [email or web address] Initial Review Date: 02/17/2019 Generated: 02/26/19 1:39 pm Comments DCP- Discharge Planning Updated by [email or web address]: Danae Caballero on 02/22/19 1:[address] Discharging home today. She declines needs. DCP- Discharge Planning Updated by [email or web address]: Danae Caballero on 02/21/19 10:[address] Patient Name: CLEO BYRNE Encounter No: [id number] : 1940 Primary Insurance: MEDICARE A & B Anticipated DC Date: 02-20-2019 Planned Disposition: Home External Planned Provider: : DCP follow-up note: Patient and family in agreement with discharge plan. No changes to plan. I spoke with RT, she states patient's oxygen saturation is 98% on room air and does not qualify for home oxygen. She has a nebulizer and neb meds at her home. States she gets them from [employer] (acquired by [employer] in 2014). States she did not qualify through [employer] to have medicare pay for her nebulizer and neb meds. I offered to see if she would qualify now and she states "no, I will just get it from [facility]." States her will pick her up from discharge. Home today, denies needs. Danae Caballero DCP- Discharge Planning Updated by [email or web address]: Dalila Rondon on 02/17/19 4:[address] Patient Name: CLEO BYRNE Admission Status: ER Accout number: [id number] Admission Date: 02-17-2019 : 1940 Admission Diagnosis: Attending: ROSALIO CHAUDHARI Current LOS: 1 Anticipated DC Date: 02-20-2019 Planned Disposition: Home Primary Insurance: MEDICARE A & B Discharge Planning Comments: DC PLAN: Return home with independently. ANTICIPATED DC NEEDS: Denied known dc needs in the ER. CM met with patient and her to complete initial dc planning assessment. CM educated patient on the CM role and verbal consent given by patient to complete assessment. CM verified patient's address, phone number, and emergency contact phone numbers. Patient lives at home with her and reports she is independent. At discharge patient plans to return home and feels this is a safe discharge. CM discussed availability of home health, rehab services, and medical equipment. Patient denied known discharge needs at this time. Patient reports her will transport her home at time of discharge. CM will continue to follow and will assist as needed with dc plans/needs. Enrobing Machine Corder: Dalila Rondon RN, [facility] DCPIA - Discharge Planning Initial Assessment Updated by [email or web address]: Dalila Rondon on 02/17/19 5:25 pm * Is the patient Alert and Oriented? Yes * How many steps to enter\\exit or inside your home? two * PCP Dr. Medrano's Nurse practitioner Star Blanca [employer] * Pharmacy [facility] [address] * Preadmission Environment Home with Family * ADLs Independent * Equipment Nebulizer * List name and contact numbers for known caregivers / representatives who currently or will assist patient after discharge: Jhonny yBrne - spouse - [phone] * Verbal permission to speak to the caregivers and representatives has been obtained from the patient. Yes * Community resources currently utilized None * Additional services required to return to the preadmission environment? No * Can the patient safely return to the preadmission environment? Yes * Has this patient been hospitalized within the prior 30 days at any hospital? No Coverage Notice Reviewer: [email or web address] Pat Caballero Notice Issued Date-Time: 02/21/2019 11:26 Notice Type: IM Discharge Notice Notice Delivered To: Patient Relationship to Patient: Self [employer] Manager Name: Delivery Method: HAND - Hand Delivered [place] Days: Prior Verbal Notification: Recipient Understood Notice: Yes Recipient Signature: Yes Med Rec Note Co-signed by Attending: Coverage Notice Comment: IMM explained, signed, given, copy placed in MR Last DP export: 02/22/19 1:09 pm Patient Name: CLEO BYRNE Page [id number] at 1239 All edits/amendments must be made on the electronic document DICTATION DATE: 02/26/19 1239 [employer] LIAISON: SINDHU 02/26/19 1239 RPT#: [id number] DC DATE:02/22/19 STATUS: DIS IN [facility] [address] [place] [address] END OF REPORT
== END 2019-02-22 12:40 | disposition home or self-care (01) | DRG 202 ==
LOC: D.ER 09:38 → D.MS 10:54
PROVIDERS: Family Medicine; ADMIT Internal Medicine Nephrology; ATTEND Internal Medicine Nephrology
DX: J45.901 Unspecified asthma with (acute) exacerbation (principal); J84.9 Interstitial pulmonary disease, unspecified; J44.0 Chronic obstructive pulmonary disease with (acute) lower respiratory infection; I82.501 Chronic embolism and thrombosis of unspecified deep veins of right lower extremity; J20.9 Acute bronchitis, unspecified; E11.9 Type 2 diabetes mellitus without complications; I10 Essential (primary) hypertension; D64.9 Anemia, unspecified

== ENCOUNTER 2019-03-05 11:56 | Emergency (ER) | payer MEDICARE, OTHER ==
[~2019-03-05] VITALS: Ht 167.6 cm; Wt 68.2 kg
[~2019-03-05 11:56] MED LIST changes: +ADVAIR 250/501 DISK INH; +BROVANA15 MCG/2 M INH; +COZAAR50 MG PO; +DIFLUCAN150 MG PO; +FLUTICASONE PRO16 GM NASAL; +IPRAT-ALBUT 0.5-3 ML INH; +JANUVIA50 MG PO; +Tessalon Perle PO; +ZITHROMAX250 MG PO
[2019-03-05 12:41] VITALS: Ht 167.6 cm; Wt 68.2 kg
[2019-03-05] MEDS ORDERED: LISINOPRIL40 MG PO (12:44)
[2019-03-05 13:28] LABS: ALBUMIN 3.1 g/dL (3.4-5.0); BILIRUBIN - TOTAL 1.7 mg/dL (0.2-1.3); CALCIUM 8.9 mg/dL (8.5-10.1); CARBON DIOXIDE 32.4 mmol/L (21.0-32.0); CREATININE - SERUM 0.8 mg/dL (0.6-1.3); POTASSIUM - SERUM 4.4 mmol/L (3.5-5.1); PROTEIN - SERUM 6.9 g/dL (6.4-8.2)
[2019-03-05 13:29] LABS: APPEARANCE CLEAR (CLEAR); BILIRUBIN NEGATIVE (NEGATIVE); COLOR STRAW (YELLOW); GLUCOSE 1000 mg/dL (NEGATIVE); KETONE NEGATIVE (NEGATIVE); NITRITE NEGATIVE (NEGATIVE); PROTEIN 1+ mg/dL (NEGATIVE); UROBILINOGEN NORMAL (NORMAL)
[2019-03-05 13:34] LABS: BACTERIA FEW /hpf (NONE SEEN); EPITHELIAL CELLS 0-5 /hpf (0-5); RED CELLS - URINE 0-5 /hpf (0-5); WHITE CELLS - URINE 0-5 /hpf (0-5)
[2019-03-05 13:38] LABS: BASOPHILS 0.1 % (0-2); HEMATOCRIT 36.8 % (36.0-48.0); HEMOGLOBIN 12.4 g/dL (12-16); IMMATURE GRANULOCYTES 0.4 % (0-5); LYMPHOCYTES 5.5 % (15-50); MCH 28.8 pg (26.0-34.0); MCHC 33.7 g/dL (31.0-37.0); MCV 85.6 fL (80.0-100.0); MEAN PLATELET VOLUME 9.6 fL (7.4-10.4); MONOCYTES 5.1 % (2-11); NEUTROPHILS 87.9 % (40-80); PLATELET COUNT 220 10x3/uL (130-400); RDW 12.7 % (11.5-14.5); WBC 12.3 10x3/uL (4.8-10.8)
[2019-03-05 16:04] VITALS: BP 140/80
== END 2019-03-05 16:05 | disposition home or self-care (01) ==
LOC: D.ER 11:56
PROVIDERS: Family Medicine
DX: R30.0 Dysuria (principal); E11.9 Type 2 diabetes mellitus without complications; I10 Essential (primary) hypertension; J44.9 Chronic obstructive pulmonary disease, unspecified

== ENCOUNTER → 2019-03-07 07:35 | Outpatient (CLI) | payer MEDICARE, OTHER ==
[2019-03-05 12:41] VITALS: BMI 24.2
[~2019-03-07 07:35] MED LIST changes: +LISINOPRIL40 MG PO
== END | disposition home or self-care (01) ==
LOC: D.RAD 07:35
PROVIDERS: ATTEND Internal Medicine Pulmonary Disease
DX: J84.9 Interstitial pulmonary disease, unspecified (principal)

== ENCOUNTER → 2019-04-27 07:45 | Outpatient (CLI) | payer MEDICARE, OTHER ==
[2019-03-05 12:41] VITALS: BMI 24.2
[2019-04-27 09:02] LABS: BASOPHILS 0.7 % (0-2); EOSINOPHILS 8.1 % (0-7); HEMATOCRIT 36.1 % (36.0-48.0); HEMOGLOBIN 11.6 g/dL (12-16); IMMATURE GRANULOCYTES 0.1 % (0-5); LYMPHOCYTES 18.8 % (15-50); MCHC 32.1 g/dL (31.0-37.0); MCV 90.3 fL (80.0-100.0); MEAN PLATELET VOLUME 9.3 fL (7.4-10.4); MONOCYTES 10.1 % (2-11); NEUTROPHILS 62.2 % (40-80); PLATELET COUNT 226 10x3/uL (130-400); RDW 12.8 % (11.5-14.5); WBC 6.9 10x3/uL (4.8-10.8)
== END | disposition home or self-care (01) ==
LOC: D.RT 03-27 13:00
PROVIDERS: ATTEND Internal Medicine Pulmonary Disease
DX: J84.9 Interstitial pulmonary disease, unspecified (principal); D72.1 Eosinophilia

== ENCOUNTER 2019-08-19 09:32 | Emergency (ER) | payer MEDICARE, OTHER ==
[~2019-08-19] VITALS: Ht 167.6 cm; Wt 66.4 kg
[2019-08-19 09:35] VITALS: Ht 167.6 cm; Wt 66.4 kg
[2019-08-19 09:54] LABS: BASOPHILS 0.9 % (0-2); EOSINOPHILS 21.8 % (0-7); HEMATOCRIT 38.5 % (36.0-48.0); HEMOGLOBIN 12.6 g/dL (12-16); IMMATURE GRANULOCYTES 0.2 % (0-5); LYMPHOCYTES 9.8 % (15-50); MCH 28.2 pg (26.0-34.0); MCHC 32.7 g/dL (31.0-37.0); MCV 86.1 fL (80.0-100.0); MEAN PLATELET VOLUME 9.8 fL (7.4-10.4); MONOCYTES 7.6 % (2-11); NEUTROPHILS 59.7 % (40-80); RBC 4.47 10x6/uL (4.00-5.40); RDW 12.7 % (11.5-14.5); WBC 9.1 10x3/uL (4.8-10.8)
[2019-08-19 10:00] LABS: PLATELET COUNT 137 10x3/uL (130-400)
[2019-08-19 10:04] LABS: INR 0.92 (0.85-1.17); PROTIME 12.3 SECONDS (11.6-15.0)
[2019-08-19 10:05] LABS: CALC OSMOLALITY 284 mosm/kg (275-300); CALCIUM 9.3 mg/dL (8.5-10.1); CARBON DIOXIDE 29.4 mmol/L (21.0-32.0); CHLORIDE - SERUM 102 mmol/L (98-107); CREATININE - SERUM 0.7 mg/dL (0.6-1.3); POTASSIUM - SERUM 4.4 mmol/L (3.5-5.1); SODIUM 139 mmol/L (136-145); UREA NITROGEN 15 mg/dL (7-18); eGFR NON AFRICAN AMERICAN 85 mL/min (90-120)
[2019-08-19 10:11] LABS: GLUCOSE 208 mg/dL (74-106)
[2019-08-19 10:19] LABS: ALBUMIN 3.3 g/dL (3.4-5.0); ALKALINE PHOSPHATASE 106 U/L (30-120); ALT (SGPT) 14 U/L (10-68); BILIRUBIN - TOTAL 1.35 mg/dL (0.2-1.3); CKMB 2.4 U/L (0.0-3.6); CREATINE KINASE 74 UL (21-215); PRO BNP 518 pg/mL (0-450); PROTEIN - SERUM 7.4 g/dL (6.4-8.2); TROPONIN-I < 0.017 ng/mL (0.000-0.060)
[2019-08-19] MEDS ORDERED: AUGMENTIN 875-11 TAB PO (10:45)
[2019-08-19] MEDS ORDERED: STERAPRED DS 1010 MG PO (10:45)
[2019-08-19 11:23] VITALS: BP 145/72
== END 2019-08-19 11:24 | disposition home or self-care (01) ==
LOC: D.ER 09:32
PROVIDERS: Family Medicine
DX: J20.9 Acute bronchitis, unspecified (principal); J44.1 Chronic obstructive pulmonary disease with (acute) exacerbation; J44.0 Chronic obstructive pulmonary disease with (acute) lower respiratory infection; E11.9 Type 2 diabetes mellitus without complications; I10 Essential (primary) hypertension; Z86.718 Personal history of other venous thrombosis and embolism; Z79.84 Long term (current) use of oral hypoglycemic drugs

== ENCOUNTER 2019-09-02 10:31 | Emergency (ER) | payer MEDICARE, OTHER ==
[~2019-09-02] VITALS: Ht 170.2 cm; Wt 67.3 kg
[~2019-09-02 10:31] MED LIST changes: +AUGMENTIN 875-11 TAB PO; +STERAPRED DS 1010 MG PO
[2019-09-02 10:36] VITALS: Ht 170.2 cm; Wt 67.3 kg
[2019-09-02] MEDS ORDERED: ACETAMINOPHEN500 M1 PO (11:36)
[2019-09-02] MEDS ORDERED: TESSALON PERLE100 MG PO (11:36)
[2019-09-02] MEDS ORDERED: CYCLOBENZAPRINE10 MG PO (11:36)
[2019-09-02 13:13] LABS: BASOPHILS 0.6 % (0-2); EOSINOPHILS 4.3 % (0-7); HEMATOCRIT 38.2 % (36.0-48.0); HEMOGLOBIN 12.6 g/dL (12-16); IMMATURE GRANULOCYTES 0.4 % (0-5); LYMPHOCYTES 9.7 % (15-50); MCH 28.5 pg (26.0-34.0); MCV 86.4 fL (80.0-100.0); MEAN PLATELET VOLUME 10.9 fL (7.4-10.4); MONOCYTES 8.4 % (2-11); NEUTROPHILS 76.6 % (40-80); RBC 4.42 10x6/uL (4.00-5.40); WBC 10.8 10x3/uL (4.8-10.8)
[2019-09-02 13:18] LABS: CALC OSMOLALITY 281 mosm/kg (275-300); CALCIUM 9.2 mg/dL (8.5-10.1); CARBON DIOXIDE 26.7 mmol/L (21.0-32.0); CHLORIDE - SERUM 101 mmol/L (98-107); CREATININE - SERUM 0.6 mg/dL (0.6-1.3); GLUCOSE 209 mg/dL (74-106); POTASSIUM - SERUM 4.7 mmol/L (3.5-5.1); SODIUM 137 mmol/L (136-145); UREA NITROGEN 19 mg/dL (7-18); eGFR NON AFRICAN AMERICAN > 90 mL/min (90-120)
[2019-09-02 13:20] LABS: PLATELET COUNT 179 10x3/uL (130-400)
[2019-09-02 13:24] LABS: ALBUMIN 3.1 g/dL (3.4-5.0); ALKALINE PHOSPHATASE 102 U/L (30-120); ALT (SGPT) 16 U/L (10-68)
[2019-09-02 13:43] LABS: BILIRUBIN NEGATIVE (NEGATIVE); GLUCOSE NEGATIVE (NEGATIVE); KETONE NEGATIVE (NEGATIVE); NITRITE NEGATIVE (NEGATIVE); SPECIFIC GRAVITY 1.005 (1.005-1.020); UROBILINOGEN NORMAL (NORMAL)
[2019-09-02 14:32] VITALS: BP 147/66
== END 2019-09-02 14:33 | disposition home or self-care (01) ==
LOC: D.ER 10:31
PROVIDERS: Family Medicine
DX: R05 Cough (principal); R51 Headache; E11.9 Type 2 diabetes mellitus without complications; I10 Essential (primary) hypertension; Z79.84 Long term (current) use of oral hypoglycemic drugs; J44.9 Chronic obstructive pulmonary disease, unspecified; W19.XXXA Unspecified fall, initial encounter; Y93.9 Activity, unspecified; Y92.9 Unspecified place or not applicable

== ENCOUNTER 2020-02-06 07:33 | Emergency (ER) | payer MEDICARE, OTHER ==
[~2020-02-06] VITALS: Ht 170.2 cm; Wt 63.6 kg
[~2020-02-06 07:33] MED LIST changes: +ACETAMINOPHEN500 M1 PO; +CYCLOBENZAPRINE10 MG PO
[2020-02-06 07:49] VITALS: Ht 170.2 cm; Wt 63.6 kg
[2020-02-06] MEDS ORDERED: NAPROXEN250 MG PO (10:23)
[2020-02-06] MEDS ORDERED: TYLENOL #4 W/CO1 TAB PO (10:23)
[2020-02-06 10:35] VITALS: BP 121/70
== END 2020-02-06 10:35 | disposition home or self-care (01) ==
LOC: D.ER 07:33
DX: S16.1XXA Strain of muscle, fascia and tendon at neck level, initial encounter (principal); X58.XXXA Exposure to other specified factors, initial encounter; E11.9 Type 2 diabetes mellitus without complications; Z79.84 Long term (current) use of oral hypoglycemic drugs; I10 Essential (primary) hypertension; J44.9 Chronic obstructive pulmonary disease, unspecified

== ENCOUNTER → 2020-03-04 10:37 | Outpatient (CLI) | payer MEDICARE, OTHER ==
[2020-02-06 07:49] VITALS: BMI 21.9
[~2020-03-04 10:37] MED LIST changes: +NAPROXEN250 MG PO; +TYLENOL #4 W/CO1 TAB PO
== END | disposition home or self-care (01) ==
LOC: D.LAB 10:37
PROVIDERS: ATTEND Internal Medicine Pulmonary Disease
DX: Z11.59 Encounter for screening for other viral diseases (principal)

== ENCOUNTER → 2020-03-28 12:04 | Outpatient (CLI) | payer MEDICARE, OTHER ==
[2020-02-06 07:49] VITALS: BMI 21.9
== END | disposition home or self-care (01) ==
LOC: D.LAB 12:04
PROVIDERS: ATTEND Internal Medicine Pulmonary Disease
DX: Z11.59 Encounter for screening for other viral diseases (principal)

== ENCOUNTER → 2020-03-31 10:42 | Outpatient (CLI) | payer MEDICARE, OTHER ==
[2020-02-06 07:49] VITALS: BMI 21.9
== END | disposition home or self-care (01) ==
LOC: D.RT 03-07 14:00
PROVIDERS: ATTEND Internal Medicine Pulmonary Disease
DX: J44.9 Chronic obstructive pulmonary disease, unspecified (principal); J84.9 Interstitial pulmonary disease, unspecified

== ENCOUNTER 2020-10-01 13:34 | Emergency (ER) | payer MEDICARE, OTHER ==
[~2020-10-01] VITALS: Ht 170.2 cm; Wt 63.6 kg
[~2020-10-01 13:34] MED LIST changes: +HYDROCODON-ACE1 EAC7 PO
[2020-10-01 14:03] VITALS: BP 184/81; Ht 170.2 cm; Wt 63.6 kg
[2020-10-01] MEDS ORDERED: CYCLOBENZAPRINE10 MG PO (16:58)
[2020-10-01] MEDS ORDERED: IBUPROFEN800 MG PO (16:58)
[2020-10-01] MEDS ORDERED: ACETAMINOPHEN500 M1 PO (16:58)
== END 2020-10-01 17:16 | disposition home or self-care (01) ==
LOC: D.ER 13:34
DX: M25.512 Pain in left shoulder (principal); M79.10 Myalgia, unspecified site; T14.8XXA Other injury of unspecified body region, initial encounter; W01.0XXA Fall on same level from slipping, tripping and stumbling without subsequent striking against object, initial encounter; Y93.9 Activity, unspecified; Y92.9 Unspecified place or not applicable; E11.9 Type 2 diabetes mellitus without complications; I10 Essential (primary) hypertension; J44.9 Chronic obstructive pulmonary disease, unspecified; K21.9 Gastro-esophageal reflux disease without esophagitis; Z79.84 Long term (current) use of oral hypoglycemic drugs; M25.552 Pain in left hip; M25.562 Pain in left knee; M79.602 Pain in left arm

== ENCOUNTER → 2020-10-09 13:58 | Outpatient (CLI) | payer MEDICARE, OTHER ==
[2020-10-01 14:03] VITALS: BMI 21.9
[~2020-10-09 13:58] MED LIST changes: +IBUPROFEN800 MG PO
== END | disposition home or self-care (01) ==
LOC: D.MRI 13:58
PROVIDERS: ATTEND Clinical Nurse Specialist Family Health
DX: M54.12 Radiculopathy, cervical region (principal)